=== PATIENT | female | born 1995 | race Asian ===

== ENCOUNTER 2018-03-31 08:44 | Emergency (ER) | payer MEDICAID, OTHER ==
[~2018-03-31] VITALS: Ht 147.3 cm; Wt 56.8 kg
[~2018-03-31 08:44] MED LIST: BIRTH CONTROL PILLS PO
[2018-03-31 12:15] VITALS: BP 123/80
== END 2018-03-31 12:45 | disposition home or self-care (01) ==
LOC: EMS 08:45
DX: S20.219A Contusion of unspecified front wall of thorax, initial encounter (principal); F12.90 Cannabis use, unspecified, uncomplicated; V49.9XXA Car occupant (driver) (passenger) injured in unspecified traffic accident, initial encounter; Y93.89 Activity, other specified; Y92.89 Other specified places as the place of occurrence of the external cause; Y99.8 Other external cause status
CPT/HCPCS: 99284